=== PATIENT | male | born 1945 | race Caucasian/White ===

== ENCOUNTER 2023-07-29 14:26 | Inpatient (IN) | payer MEDICARE, MEDICAID, SELFPAY ==
[2023-07-29] VITALS (10 sets, daily range): BP systolic 108–152; BP diastolic 55–80; PULSE 70–82; RESP 14–24; TEMP 36.4–36.5; O2SAT 94–100; BMI 32.8; BMI 26.1
--- NOTE | ~2023-07-29 | CT_ITS ---
EXAMINATION: CT brain wo con DATE: 07/29/2023 17:19 INDICATION: TIA . TECHNIQUE: Computed tomography (CT) of the head was performed without intravenous contrast. The mA wa s adjusted according to patient size. Iterative reconstruction technique was employed. The dose-lengt h product was 605.33 mGy-cm. COMPARISON: None. FINDINGS: No acute intracranial hemorrhage or extra-axial fluid collection. No hydrocephalus, mass, or herniation. No acute ischemic infarct. Unremarkable dural venous sinus attenuation. No acute osseous abnormality. The aerated spaces are clear. Moderate atrophy and chronic white matter change. Atherosclerotic intracranial calcification. Bilater al old lacunar infarcts. IMPRESSION: No acute intracranial process. Reviewed, dictated and finalized at location K.
--- NOTE | ~2023-07-29 | CT_ITS ---
EXAMINATION: CT pelvis w con DATE: 07/29/2023 17:26 INDICATION: TECHNIQUE: Computed tomography (CT) of the pelvis was performed without intravenous contrast. Automat ed exposure control and iterative reconstruction technique were employed. The dose-length product was 777.97 mGy-cm. COMPARISON: None FINDINGS: Lumbar scoliosis and severe degenerative changes in the lower lumbar spine. Bilateral hip o steoarthritis. Patchy lytic areas throughout the axial skeleton. No evidence of osteomyelitis. No fra cture or dislocation. Multiple indeterminate density right renal lesions. Multiple right renal cysts and lesions that are too small to characterize. Atherosclerotic calcification. Prostatomegaly. Mild b ladder distention. No focal soft tissue defect detected. IMPRESSION: No CT evidence of significant sacral ulcer or osteomyelitis. Multiple indeterminate right renal masses, consider CT or MRI without and with contrast for further e valuation. Suggestion of lytic marrow lesions may represent aggressive osteoporosis, multiple myeloma, or metast ases. Correlate with history of primary malignancy. Reviewed, dictated and finalized at location K. IMPRESSION: No CT evidence of significant sacral ulcer or osteomyelitis. Multiple indeterminate right renal masses, consider CT or MRI without and with contrast for further evaluation. Suggestion of lytic marrow lesions may represent aggressive osteoporosis, multi ple myeloma, or metastases. Correlate with history of primary malignancy.
--- NOTE | 2023-07-29 15:11 | ED.GENADULT ---
HPI - General Adult General Chief complaint: Neuro Symptoms/Deficit Stated complaint: b/l LE pain Time Seen by Provider: 07/29/23 14:55 History of Present Illness HPI narrative: 78-year-old male presenting to the emergency department for evaluation of increased generalized weakness. Patient was just admitted and discharged to [facility]. [facility]. Family was concerned and wanted him reevaluated a second hospital. Family had last seen the patient approximate 1 month ago and they saw the patient today they noticed that he had significantly declined in his abilities. 1 month ago patient was able to ambulate with a walker but now he is bedbound. Patient is bedbound and does complain of lower extremity pain. Patient has a significant sacral ulcer that is chronic. Patient is alert and orientated at his baseline. Related Data Home Medications Medication Instructions Recorded Confirmed acetaminophen 650 mg 650 mg PO Q6H PRN Pain, Mild 07/29/23 07/29/23 tablet,extended release albuterol sulfate 90 mcg/actuation 2 puff inhalation Q6H PRN 07/29/23 07/29/23 aerosol inhaler Shortness Of Breath Or Wheezing aluminum-mag hydroxide-simethicone 5 ml PO QID PRN Abdominal 07/29/23 07/29/23 400 mg-400 mg-40 mg/5 mL oral susp Discomfort (Mylanta Maximum Strength) aspirin 81 mg tablet,delayed 81 mg PO DAILY 07/29/23 07/29/23 release budesonide 160 mcg-glycopyr 9 2 inh inhalation QAM AND QPM 07/29/23 07/29/23 mcg-formot 4.8 mcg/actuation HFA inhaler (Breztri Aerosphere) citalopram 10 mg tablet 10 mg PO DAILY 07/29/23 07/29/23 cyanocobalamin (vitamin B-12) 1,000 mcg 07/29/23 1,000 mcg/mL injection syringe diclofenac sodium 1 % topical gel 4 g topical QID 07/29/23 07/29/23 docusate sodium 100 mg tablet 100 mg PO BID 07/29/23 07/29/23 fluticasone propionate 50 2 spray intranasal DAILY 07/29/23 07/29/23 mcg/actuation nasal spray,suspension gabapentin 100 mg capsule 100 mg PO BID 07/29/23 07/29/23 hydrochlorothiazide 12.5 mg tablet 12.5 mg PO DAILY 07/29/23 07/29/23 lisinopril 40 mg tablet 40 mg PO DAILY 07/29/23 07/29/23 magnesium oxide 400 mg PO DAILY 07/29/23 07/29/23 melatonin 3 mg tablet 3 mg PO HS 07/29/23 07/29/23 metoprolol succinate 50 mg capsule 50 mg PO DAILY 07/29/23 07/29/23 sprinkle, ext. release 24 hr olopatadine 0.2 % eye drops 1 drp EACH EYE DAILY 07/29/23 07/29/23 omeprazole 20 mg capsule,delayed 20 mg PO BID 07/29/23 07/29/23 release polyethylene glycol 3350 17 17 g PO DAILY PRN Constipation 07/29/23 07/29/23 gram/dose oral powder (Miralax) pravastatin 40 mg tablet 40 mg PO DAILY 07/29/23 07/29/23 roflumilast 500 mcg tablet 500 mcg PO DAILY 07/29/23 07/29/23 trazodone 50 mg tablet 50 mg PO HS 07/29/23 07/29/23 Allergies Allergy/AdvReac Type Severity Reaction Status Date / Time No Known Allergies Allergy Unknown Unverified 05/07/15 09:47 Review of Systems Review of Systems: All systems reviewed & are unremarkable except as noted in HPI and below PMFSH Social History Social History Smoking status: Former smoker Alcohol intake: never Substance use: never Lack of Transportation: No Lack of Food: Never True Current Housing: I Have Housing Concerned About Future Housing: No Difficulty Paying Gas/Electric Bills: No Difficulty Paying for Meds: No Currently Unemployed: No Education: High School Diploma/GED Difficulty w/ Childcare or Family Care: No Spiritual care concerns: No Exam Narrative: APPEARANCE: Well appearing, no pain, no distress, well-nourished. HEAD: normocephalic, atraumatic. EYES: PERRLA/EOMI, conjunctivae clear. NOSE: Normal no drainage NECK: Supple. No adenopathy, no masses. RESPIRATORY: Airway patent, respirations nonlabored. Clear to auscultation bilaterally, no rales, rhonchi, wheezing. CARDIOVASCULAR: Regular rate and rhythm without murmurs rubs or gallops. ABDOMINAL: Soft, nontender, nondistended, normal
[2023-07-29 15:53] LABS: Basophils Absolute Auto 0.1 K/mm3 (0.0-0.1); Basophils Percent Auto 0.5 % (0.2-1.2); Eosinophils Absolute Auto 0.3 K/mm3 (0-0.3); Eosinophils Percent Auto 2.2 % (0-4.4); Hemoglobin 12.8 g/dL (14.0-18.0); Immature Granulocyte Absolute 0.08 K/mm3 (0.00-0.031); Immature Granulocyte Percent A 0.5 % (0-0.5); Lymphocytes Absolute Auto 1.73 K/mm3 (0.9-3.2); Lymphocytes Percent Auto 11.9 % (18.3-44.2); Mean Corpuscular Hemoglobin 29.2 pg (26-34); Mean Corpuscular Volume 91.1 fl (80-100); Mean Platelet Volume 9.8 fl (7.4-10.4); Monocytes Percent Auto 6.7 % (2.6-8.5); Neutrophils Absolute Auto 11.4 K/mm3 (1.3-6.7); Neutrophils Percent Auto 78.2 % (45.5-73.1); Platelet Count Result 379 k/mm3 (150-375); Red Blood Count 4.39 M/mm3 (4.6-6.20); White Blood Count 14.6 K/mm3 (4.5-10.0)
[2023-07-29 16:03] LABS: INR 1.1; Prothrombin Time 14.4 Seconds (11.1-14.7)
[2023-07-29 16:04] LABS: Partial Thromboplastin Time 26.8 SECONDS (22.3-36.8)
[2023-07-29 16:34] LABS: Influenza A QL RT-PCR Negative (Negative); Influenza B QL RT-PCR Negative (Negative); RSV RNA, RT-PCR Negative (Negative); SARS-CoV-2 RNA PCR Negative (Negative)
[2023-07-29] MEDS: fentaNYL CITRATE INJ (*CRX) 100 MCG/2 ML VIAL 50 MCG IV PUSH (16:50)
[2023-07-29 17:04] LABS: Lactic Acid Reflex 1.2 mmol/L (0.7-2.0)
[2023-07-29 17:15] LABS: Estimated CRCL calculation 43 ml/min; Estimated Glomerular Filt Rate 42
[2023-07-29 17:22] LABS: Alanine Aminotransferase 10 U/L (6-50); Albumin Level 3.4 g/dL (3.5-5.1); Alkaline Phosphatase 80 U/L (38-126); Anion Gap 11 mmol/L (8-16); Aspartate Amino Transferase 17 U/L (17-59); Bilirubin,Total 0.7 mg/dL (0.2-1.3); Blood Urea Nitrogen 38 mg/dL (9-20); Calcium 9.8 mg/dL (8.4-10.2); Carbon Dioxide 18 mmol/L (22-30); Chloride 110 mmol/L (98-107); Estimated CRCL calculation 45 ml/min; Estimated Glomerular Filt Rate 45; Glucose 90 mg/dL (65-110); Potassium 4.2 mmol/L (3.4-5.0); Sodium 139 mmol/L (137-145)
--- NOTE | 2023-07-29 19:03 | PC.NURSE ---
1830-pt refusing VS monitoring at this time, Pt unable to provide urine same and pt refused straight catheter. Pt educated on importance of monitoring and urine sample, MD aware of pt refusal.
--- NOTE | 2023-07-29 19:28 | PC.NURSE ---
Pt refused IV Zosyn, pt educated on importance and pt states I'm not doing that shit, I'm not worried about infection .
--- NOTE | 2023-07-29 20:12 | PM.IMHP ---
H&P: HPI History of Present Illness Date/Time: 07/29/23 20:12 Chief Complaint: Generalized weakness Narrative: This is an 78-year-old male with past medical history significant for hypertension, COPD/emphysema. Patient just recently discharged from a local hospital was brought to the emergency room for evaluation due to generalized weakness and worsening sacral decubitus ulcer. Patient was unable to provide much history. Workup was significant for lytic bone lesions found on CT. EXAMINATION: CT brain wo con DATE: 07/29/2023 17:19 INDICATION: TIA . TECHNIQUE: Computed tomography (CT) of the head was performed without intravenous contrast. The mA was adjusted according to patient size. Iterative reconstruction technique was employed. The dose-length product was 605.33 mGy-cm. COMPARISON: None. FINDINGS: No acute intracranial hemorrhage or extra-axial fluid collection. No hydrocephalus, mass, or herniation. No acute ischemic infarct. Unremarkable dural venous sinus attenuation. No acute osseous abnormality. The? aerated spaces are clear. Moderate atrophy and chronic white matter change. Atherosclerotic intracranial calcification. 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 IMPRESSION:? No acute intracranial process. EXAMINATION: CT pelvis w con DATE: 07/29/2023 17:26 INDICATION: TECHNIQUE: Computed tomography (CT) of the pelvis was performed without intravenous contrast. Automated exposure control and iterative reconstruction technique were employed. The dose-length product was 777.97 mGy-cm. COMPARISON: None FINDINGS: Lumbar scoliosis and severe degenerative changes in the lower lumbar spine. Bilateral hip osteoarthritis. Patchy lytic areas throughout the axial skeleton. No evidence of osteomyelitis. No fracture or dislocation. Multiple indeterminate density right renal lesions. Multiple right renal cysts and lesions that are too small to characterize. Atherosclerotic calcification. Prostatomegaly. Mild bladder distention. No focal soft tissue defect detected. IMPRESSION: No CT evidence of significant sacral ulcer or osteomyelitis. Multiple indeterminate right renal masses, consider CT or MRI without and with contrast for further evaluation. Suggestion of lytic marrow lesions may represent aggressive osteoporosis, multiple myeloma, or metastases. Correlate with history of primary malignancy. Review of Systems Review of Systems: ROS unobtainable: Yes unobtainable due to mental status (Obtundation/lethargy) PMFSH Social History Social History Smoking status: Former smoker Alcohol intake: never Substance use: never Lack of Transportation: No Lack of Food: Never True Current Housing: I Have Housing Concerned About Future Housing: No Difficulty Paying Gas/Electric Bills: No Difficulty Paying for Meds: No Currently Unemployed: No Education: High School Diploma/GED Difficulty w/ Childcare or Family Care: No Spiritual care concerns: No Meds Home Medications and Allergies Home Medications Medication Instructions Recorded Confirmed Type acetaminophen 650 mg 650 mg PO Q6H PRN Pain, Mild 07/29/23 07/29/23 History tablet,extended release albuterol sulfate 90 mcg/actuation 2 puff inhalation Q6H PRN 07/29/23 07/29/23 History aerosol inhaler Shortness Of Breath Or Wheezing aluminum-mag hydroxide-simethicone 5 ml PO QID PRN Abdominal 07/29/23 07/29/23 History 400 mg-400 mg-40 mg/5 mL oral susp Discomfort (Mylanta Maximum Strength) aspirin 81 mg tablet,delayed 81 mg PO DAILY 07/29/23 07/29/23 History release budesonide 160 mcg-glycopyr 9 2 inh inhalation QAM AND QPM 07/29/23 07/29/23 History mcg-formot 4.8 mcg/actuation HFA inhaler (Breztri Aerosphere) citalopram 10 mg tablet 10 mg PO DAILY 07/29/23 07/29/23 History cyanocobalamin (vitamin B-12) 1,000 mcg MONTHLY 07/29/23 07/29/23 History 1,000 mcg/mL injection syringe diclofenac sodium 1 % topi
--- NOTE | 2023-07-29 20:29 | ADMGEN ---
This patient, Valdez iSmpson, was admitted to Medical Room 343-01. Patient/family oriented to hospital policies and general routines including ID bracelet, bed and alarms, visiting hours, pain management, procedures, bathroom and other care routines, personal items, smoking policy, room service/diet, and visiting hours. Information on how to activate the Rapid Response Team has been discussed. Patient/Family are encouraged to report perceived risks to care and to ask questions if they do not understand what they are told or what they should do.
[2023-07-30 05:08] VITALS: BP 120/69; PULSE 67; RESP 16; TEMP 37; O2SAT 99
[2023-07-30] MEDS: PIPERACILLN/TAZ 3.375GM/NS50ML 3.375 GM/50 ML BAG IVPB ×3 (05:10→17:02)
[2023-07-30] MEDS: MAGNESIUM OXIDE 400 MG TABLET PO (10:18)
[2023-07-30] MEDS: ASPIRIN 81 MG ENTERIC TABLET PO (10:18)
[2023-07-30] MEDS: GABAPENTIN 100 MG CAPSULE PO ×2 (10:18→21:34)
[2023-07-30] MEDS: ROFLUMILAST 500 MCG TABLET PO (10:18)
[2023-07-30] MEDS: CITALOPRAM HYDROBROMIDE 10 MG TABLET PO (10:18)
[2023-07-30] MEDS: PRAVASTATIN SODIUM 20 MG TABLET 40 MG PO (10:18)
[2023-07-30] MEDS: FLUTICASONE PROPIONATE 0.05% NA SPR 16 GM BTL (*BKC) 2 SPRAY NASAL (10:20)
[2023-07-30] MEDS: BETAMETHASONE/CLOTRIMAZOLE CR 15 GM TUBE 1 APPLIC TOPICAL ×2 (10:20→21:34)
[2023-07-30] MEDS: DICLOFENAC SODIUM 1% 100 GM GEL (*BKC) 1 APPLIC TOPICAL ×4 (10:20→21:33)
[2023-07-30] MEDS: DOCUSATE SODIUM 100 MG CAPSULE PO ×2 (10:22→21:34)
[2023-07-30] MEDS: SOD HYPOCHLORITE 1/4 STRENGTH 473 ML 1 APPLIC TOPICAL ×2 (10:22→21:34)
[2023-07-30 10:23] VITALS: PULSE 74
[2023-07-30] MEDS: METOPROLOL SUCCINATE EXT REL 50 MG TABCR PO (10:23)
[2023-07-30 10:54] LABS: Appearance Urine Clear (Clear); Bilirubin Urine Negative (Negative); Blood Urine Negative (Negative); Color Urine Yellow (Yellow); Glucose Urine UA Negative (Negative); Ketones Urine 1+ mg/dL (Negative); Leukocyte Esterase Ur Negative LEU/UL (Negative); Nitrate Urine Negative (Negative); Protein Urine Negative (Negative); Urobilinogen Urine 0.2 mg/dL (<2.0)
--- NOTE | 2023-07-30 10:54 | PCOTNOTE ---
Attempted OT evaluation. Patient refused evaluation stating, go away. Will follow.
[2023-07-30 11:00] VITALS: BMI 26.1
[2023-07-30 11:01] LABS: Add Urine Microscopic? NO; Specific Grav Ur 1.042 (1.001-1.035)
[2023-07-30] MEDS: SODIUM CHLORIDE 0.9% IV 1,000 ML 75 ML IV CONT (12:04)
[2023-07-30] MEDS: PANTOPRAZOLE SOD SESQUIHYDRATE 20 MG TAB PO ×2 (12:04→21:35)
[2023-07-30] MEDS: FLUTICASONE/UMECLIDIN/VILANTER 100-62.5-25 MCG ELLIPTA 1 PUFF INHALATION (12:15)
[2023-07-30 12:16] VITALS: PULSE 68; RESP 20
[2023-07-30 12:18] VITALS: O2SAT 98
[2023-07-30 14:00] VITALS: BP 116/65; PULSE 74; RESP 20; TEMP 37; O2SAT 100
--- NOTE | 2023-07-30 14:05 | PM.CNGS ---
Assessment and Plan Assessment and plan (1) Sacral decubitus ulcer: Qualifiers: Pressure injury stage: unstageable Qualified Code(s): L89.150 - Pressure ulcer of sacral region, unstageable Code(s): L89.159 - Pressure ulcer of sacral region, unspecified stage Status: Acute Assessment and Plan: Patient has an infected sacral decubitus with necrotic tissue and foul odor. This needs to be debrided. This could be the cause of his mental status changes and his elevated white blood cell count. I called and talked to his healthcare POA, Aditya Simpson. I explained the condition of the sacral decubitus and that it does appear to be infected. I explained that it could be playing a significant role in his current illness but even if not, debridement is indicated. He is in favor of proceeding with excisional debridement. Plan to go ahead with that at 10:00 a.m. tomorrow morning. (2) Altered mental status, unspecified: Code(s): R41.82 - Altered mental status, unspecified Status: Acute Assessment and Plan: Patient nonverbal and obtunded. Baseline mental status not entirely clear. Pending old records. History of Present Illness Consult details Consult date: 07/30/23 Reason for consult: other (Sacral decubitus) Requesting physician: Lily Carrasco MD Narrative: Patient is an 78-year-old man who resides in a shelter. He was apparently admitted to [facility] and discharged back to the shelter yesterday 07/29/2023. Records from [facility] are not available at present time. Patient's family saw him and felt that he was significantly debilitated from their last visit about a month ago. He was complaining of lower extremity pain and was noted to have a large sacral decubitus. He went to the emergency room at [facility] on the same day that he was discharged, 07/29/2023. He was noted to have an elevated white blood cell count. CT scan of the pelvis showed several lytic lesions of the axial skeleton. Etiology of these is not apparent. Patient was also noted to have a foul-smelling necrotic sacral decubitus. We have been asked to see the patient regarding his sacral decubitus and potential management. Patient is nonverbal at the present time. Patient's white blood cell count in the emergency room was 14,600. His CT of the pelvis did not suggest sacral osteomyelitis. Review of Systems Review of Systems: ROS unobtainable: Yes unobtainable due to medical condition PMFSH Social History Social History Smoking status: Former smoker Alcohol intake: never Substance use: never Lack of Transportation: No Lack of Food: Never True Current Housing: I Have Housing Concerned About Future Housing: No Difficulty Paying Gas/Electric Bills: No Difficulty Paying for Meds: No Currently Unemployed: No Education: High School Diploma/GED Difficulty w/ Childcare or Family Care: No Spiritual care concerns: No Meds Home Medications and Allergies Home Medications Medication Instructions Recorded Confirmed Type acetaminophen 650 mg 650 mg PO Q6H PRN Pain, Mild 07/29/23 07/29/23 History tablet,extended release albuterol sulfate 90 mcg/actuation 2 puff inhalation Q6H PRN 07/29/23 07/29/23 History aerosol inhaler Shortness Of Breath Or Wheezing aluminum-mag hydroxide-simethicone 5 ml PO QID PRN Abdominal 07/29/23 07/29/23 History 400 mg-400 mg-40 mg/5 mL oral susp Discomfort (Mylanta Maximum Strength) aspirin 81 mg tablet,delayed 81 mg PO DAILY 07/29/23 07/29/23 History release budesonide 160 mcg-glycopyr 9 2 inh inhalation QAM AND QPM 07/29/23 07/29/23 History mcg-formot 4.8 mcg/actuation HFA inhaler (Breztri Aerosphere) citalopram 10 mg tablet 10 mg PO DAILY 07/29/23 07/29/23 History cyanocobalamin (vitamin B-12) 1,000 mcg MONTHLY 07/29/23 07/29/23 History 1,000 mcg/mL injec
--- NOTE | 2023-07-30 14:11 | PM.IMPN ---
Progress Note: A&P Assessment and Plan (1) Adult failure to thrive: Code(s): R62.7 - Adult failure to thrive Status: Acute Assessment and Plan: liberalize diet protein supplement dietitian consulted (2) Generalized weakness: Code(s): R53.1 - Weakness Status: Acute Assessment and Plan: Likely secondary to recent hospitalization PT OT consult (3) Sacral decubitus ulcer: Code(s): L89.159 - Pressure ulcer of sacral region, unspecified stage Status: Acute Assessment and Plan: Wound care consult recommended surgery consult Surgery consulted (4) Lytic bone lesions on xray: Code(s): M89.9 - Disorder of bone, unspecified Status: Acute Assessment and Plan: Unclear etiology Request medical records from outside hospital (5) PAULINE (acute kidney injury): Code(s): N17.9 - Acute kidney failure, unspecified Status: Acute Assessment and Plan: Likely pre renal azotemia Will hold hydrochlorothiazide Will hold lisinopril gentle rehydration and monitor (6) Renal mass, right: Code(s): N28.89 - Other specified disorders of kidney and ureter Status: Acute Assessment and Plan: urology consulted Subjective Date/time seen: 07/30/23 14:11 Review of Systems Review of Systems: ROS unobtainable: Yes unobtainable due to mental status (Obtundation/lethargy) Exam Narrative: Patient is laying in bed Const: General: comfortable, no acute distress, well developed, alert, awake, lethargic, patient obtunded and average body habitus Nutritional Appearance: average body habitus Orientation/consciousness: oriented to person, oriented to place, patient obtunded and lethargic HENMT: Head: normal to inspection, normocephalic and atraumatic Ears: hearing grossly normal bilaterally Face/Nose/Sinus: normal facial exam Face and sinus: normal facial exam Eyes: General: appearance normal, both eyes and all related structures Pupils: Equal, round and reactive pupils present EOM: EOMs intact bilaterally Neck: Neck: full ROM, no lymphadenopathy and no JVD Thyroid: thyroid normal Lymphatic: no lymphadenopathy noted Resp: Effort & Inspection: normal respiratory effort and able to speak in complete sentences Auscultation: clear to auscultation bilaterally Cardio: Jugular venous distension: no JVD Rate: regular rate Rhythm: regular rhythm Heart sounds: S1 normal heart sound present and S2 normal heart sound present : General: Yes deferred Skin: General skin exam: wounds noted (Sacral area) Rashes: no rashes Wounds: wounds noted (Sacral area) Neuro: General: oriented to person, oriented to place, CN's II-XI intact bilaterally and patient obtunded Cranial nerves: Yes CN's II-XII intact bilaterally and Yes Equal, round and reactive pupils present Cognition (Neuro): normal cognition Speech: normal speech Gait exam (Neuro): Normal gait present Motor exam (neuro): 5/5 motor strength present throughout Extrem: General: normal to inspection, full ROM, no joint enlargement and no pedal edema Objective Data Vital Signs Vital Signs: Vital Signs - 24 hr 07/29/23 14:29 07/29/23 14:45 07/29/23 14:46 Temperature 97.6 F Pulse Rate 82 75 70 Respiratory Rate 24 H 15 18 Blood Pressure 122/80 108/62 Pulse Oximetry 100 98 96 Oxygen Delivery Room Air 07/29/23 15:01 07/29/23 15:16 07/29/23 17:26 Temperature Pulse Rate 80 79 81 Respiratory Rate 20 18 14 Blood Pressure 108/55 L 116/80 Pulse Oximetry 98 98 98 Oxygen Delivery 07/29/23 17:30 07/29/23 18:01 07/29/23 19:16 Temperature Pulse Rate 81 74 Respiratory Rate 16 21 H Blood Pressure 136/64 134/68 Pulse Oximetry 96 94 Oxygen Delivery 07/29/23 20:39 07/30/23 05:08 07/30/23 10:23 Temperature 97.7 F 98.6 F Pulse Rate 79 67 74 Respiratory Rate 18 16 Blood Pressure 152/65 H 120/69 Pulse Oximetry 100 99 Oxygen Delivery 07/30
--- NOTE | 2023-07-30 14:53 | PC.NURSE ---
RN called Aditya FINCH of patient and obtained phone consents with 2nd RN
--- NOTE | 2023-07-30 15:15 | WPDURCON ---
Assessment and Plan Assessment and plan (1) Renal mass, right: Code(s): N28.89 - Other specified disorders of kidney and ureter Status: Acute Assessment and Plan: Bilateral renal masses which, by outside MRI scan abdomen/ pelvis w/wo contrast in February 2023 are consistent with simple and proteinaceous cyst. There are no findings suggestive solid enhancing renal malignancies. No further urological evaluation, or evaluation of these kidney findings, needed. Urology Consult Note HPI Date Seen: 07/30/23 Requesting Physician: Michelle Escamilla MD Primary Care Provider: Benny Randall, Consult Narrative Narrative: Valdez Simpson is a 78 year old male, previously unknown to our practice, who were asked to see to evaluate bilateral indeterminate renal masses. Patient is a care home resident and adriano experience cognitive decline over the past several months. His family asked for evaluation here because of this decline and dissatisfaction with answers a were getting at [facility] in [place]. I was able to log into [facility] [employer] EMR and can see the patient has had multiple admissions there over the past 6 months, generally for mental status changes. He has had least 2 brain MRI ( April 2023 in July 2023) - both showing small-vessel disease with generalized volume loss and no other significant findings. His most recent admission there was on July 09 when he presented with transient facial droop. Additionally, he has had lumbosacral spine CT and MRI scans that show multilevel degenerative disease with nonspecific heterogeneous bone density. There was no mention of lytic metastases. He does have bilateral indeterminate renal masses. MRI renal scan in February 2023 showed bilateral simple cysts with hemorrhagic proteinaceous cyst. There were no solid enhancing masses suspicious for renal cell carcinoma Review of Systems Review of Systems: ROS unobtainable: Yes unobtainable due to mental status [facility] Social History Social History Smoking status: Former smoker Alcohol intake: never Substance use: never Lack of Transportation: No Lack of Food: Never True Current Housing: I Have Housing Concerned About Future Housing: No Difficulty Paying Gas/Electric Bills: No Difficulty Paying for Meds: No Currently Unemployed: No Education: High School Diploma/GED Difficulty w/ Childcare or Family Care: No Spiritual care concerns: No Meds Home Medications and Allergies Home Medications Medication Instructions Recorded Confirmed Type acetaminophen 650 mg 650 mg PO Q6H PRN Pain, Mild 07/29/23 07/29/23 History tablet,extended release albuterol sulfate 90 mcg/actuation 2 puff inhalation Q6H PRN 07/29/23 07/29/23 History aerosol inhaler Shortness Of Breath Or Wheezing aluminum-mag hydroxide-simethicone 5 ml PO QID PRN Abdominal 07/29/23 07/29/23 History 400 mg-400 mg-40 mg/5 mL oral susp Discomfort (Mylanta Maximum Strength) aspirin 81 mg tablet,delayed 81 mg PO DAILY 07/29/23 07/29/23 History release budesonide 160 mcg-glycopyr 9 2 inh inhalation QAM AND QPM 07/29/23 07/29/23 History mcg-formot 4.8 mcg/actuation HFA inhaler (Breztri Aerosphere) citalopram 10 mg tablet 10 mg PO DAILY 07/29/23 07/29/23 History cyanocobalamin (vitamin B-12) 1,000 mcg MONTHLY 07/29/23 07/29/23 History 1,000 mcg/mL injection syringe diclofenac sodium 1 % topical gel 4 g topical QID 07/29/23 07/29/23 History docusate sodium 100 mg tablet 100 mg PO BID 07/29/23 07/29/23 History fluticasone propionate 50 2 spray intranasal DAILY 07/29/23 07/29/23 History mcg/actuation nasal spray,suspension gabapentin 100 mg capsule 100 mg PO BID 07/29/23 07/29/23 History hydrochlorothiazide 12.5 mg tablet 12.5 mg PO DAILY 07/29/23 07/29/23 History lisinopril 40 mg tablet 40 mg PO DAILY 07/29/23 07/29/23 History magnesium ox
[2023-07-30] MEDS: ACETAMINOPHEN 325 MG TABLET 650 MG PO (18:34)
[2023-07-30] MEDS: traZODone HCL 50 MG TABLET PO (21:34)
[2023-07-30] MEDS: MELATONIN 3 MG TABLET PO (21:34)
[2023-07-30 22:00] VITALS: BP 118/65; PULSE 64; RESP 20; TEMP 37.2; O2SAT 98
[2023-07-31] VITALS (16 sets, daily range): BP systolic 100–140; BP diastolic 41–98; PULSE 65–85; RESP 14–20; TEMP 36.3–37.1; O2SAT 93–100
[2023-07-31] MEDS: PIPERACILLN/TAZ 3.375GM/NS50ML 3.375 GM/50 ML BAG IVPB ×4 (00:29→17:05)
[2023-07-31] MEDS: SODIUM CHLORIDE 0.9% IV 1,000 ML 75 ML IV CONT ×2 (00:30→13:31)
[2023-07-31 06:18] LABS: Basophils Absolute Auto 0.1 K/mm3 (0.0-0.1); Basophils Percent Auto 0.5 % (0.2-1.2); Eosinophils Absolute Auto 0.5 K/mm3 (0-0.3); Eosinophils Percent Auto 3.7 % (0-4.4); Hematocrit 36.4 % (42.0-52.0); Hemoglobin 11.6 g/dL (14.0-18.0); Immature Granulocyte Absolute 0.06 K/mm3 (0.00-0.031); Immature Granulocyte Percent A 0.4 % (0-0.5); Lymphocytes Absolute Auto 1.62 K/mm3 (0.9-3.2); Lymphocytes Percent Auto 11.8 % (18.3-44.2); Mean Corpuscular HGB Conc 31.9 g/dl (32-36); Mean Corpuscular Hemoglobin 29.5 pg (26-34); Mean Corpuscular Volume 92.6 fl (80-100); Mean Platelet Volume 9.3 fl (7.4-10.4); Monocytes Absolute Auto 0.8 K/mm3 (0.1-0.6); Monocytes Percent Auto 6.1 % (2.6-8.5); Neutrophils Absolute Auto 10.6 K/mm3 (1.3-6.7); Neutrophils Percent Auto 77.5 % (45.5-73.1); Platelet Count Result 316 k/mm3 (150-375); Red Blood Count 3.93 M/mm3 (4.6-6.20); Red Cell Distribution Width 13.1 % (11.5-14.5); White Blood Count 13.7 K/mm3 (4.5-10.0)
[2023-07-31 06:27] LABS: Lactic Acid Reflex 0.8 mmol/L (0.7-2.0)
[2023-07-31 06:35] LABS: Alanine Aminotransferase 9 U/L (6-50); Albumin Level 2.9 g/dL (3.5-5.1); Alkaline Phosphatase 71 U/L (38-126); Anion Gap 6 mmol/L (8-16); Aspartate Amino Transferase 14 U/L (17-59); Bilirubin,Total 0.5 mg/dL (0.2-1.3); Blood Urea Nitrogen 34 mg/dL (9-20); Calcium 9.4 mg/dL (8.4-10.2); Carbon Dioxide 22 mmol/L (22-30); Chloride 110 mmol/L (98-107); Estimated CRCL calculation 42 ml/min; Estimated Glomerular Filt Rate 49; Glucose 90 mg/dL (65-110); Potassium 3.5 mmol/L (3.4-5.0); Sodium 138 mmol/L (137-145)
[2023-07-31] MEDS: FLUTICASONE/UMECLIDIN/VILANTER 100-62.5-25 MCG ELLIPTA 1 PUFF INHALATION (07:32)
--- NOTE | 2023-07-31 08:54 | PCOTNOTE ---
Attempted OT evaluation. Patient refusing any/all activity at this time. Will continue to attempt.
--- NOTE | 2023-07-31 08:58 | PCPTNOTE ---
Attempted PT evaluation. Patient refusing any/all activity at this time due to pain. Will continue to attempt.
[2023-07-31] MEDS: LACTATED RINGERS 1,000 ML 30 ML IV CONT (09:00)
[2023-07-31] MEDS: ACETAMINOPHEN 325 MG TABLET 650 MG PO (09:10)
--- NOTE | 2023-07-31 09:41 | WPDHPUPDATE1 ---
History and Physical Update Update Date/Time: 07/31/23 09:41 History and Physical has been reviewed, including an updated exam of the patient. There are NO changes in the patient's condition. Risks, benefits, and alternatives have been discussed and questions answered. Patient agrees to proceed with procedure.
--- NOTE | 2023-07-31 10:16 | WPDANESEPPF ---
Anes - Initial Pre Proc Eval Procedure: Operation Date: 07/31/23 10:00 Proposed Procedures p Debride Sacral Decubitus - Luisito Braxton MD Date/Time: 07/31/23 10:16 Surgeon: Michelle Escamilla MD Pre Op Diagnosis: Sacral Ulcer, Cellulitis, Failure to Thrive Patient Data Age: 78 Gender: M Height: 1.83 m Weight: 87.4 kg Last Vital Signs Temp 36.6 C 07/31/23 09:38 Pulse 71 07/31/23 09:38 Resp 16 07/31/23 09:38 BP 136/66 07/31/23 09:38 Pulse Ox 99 07/31/23 09:38 O2 Del Method Room Air 07/31/23 09:38 Allergies Allergy/AdvReac Type Severity Reaction Status Date / Time No Known Allergies Allergy Unknown Unverified 07/31/23 09:27 Home Medications Medication Instructions Recorded Confirmed Type acetaminophen 650 mg 650 mg PO Q6H PRN Pain, Mild 07/29/23 07/29/23 History tablet,extended release albuterol sulfate 90 mcg/actuation 2 puff inhalation Q6H PRN 07/29/23 07/29/23 History aerosol inhaler Shortness Of Breath Or Wheezing aluminum-mag hydroxide-simethicone 5 ml PO QID PRN Abdominal 07/29/23 07/29/23 History 400 mg-400 mg-40 mg/5 mL oral susp Discomfort (Mylanta Maximum Strength) aspirin 81 mg tablet,delayed 81 mg PO DAILY 07/29/23 07/29/23 History release budesonide 160 mcg-glycopyr 9 2 inh inhalation QAM AND QPM 07/29/23 07/29/23 History mcg-formot 4.8 mcg/actuation HFA inhaler (Breztri Aerosphere) citalopram 10 mg tablet 10 mg PO DAILY 07/29/23 07/29/23 History cyanocobalamin (vitamin B-12) 1,000 mcg MONTHLY 07/29/23 07/29/23 History 1,000 mcg/mL injection syringe diclofenac sodium 1 % topical gel 4 g topical QID 07/29/23 07/29/23 History docusate sodium 100 mg tablet 100 mg PO BID 07/29/23 07/29/23 History fluticasone propionate 50 2 spray intranasal DAILY 07/29/23 07/29/23 History mcg/actuation nasal spray,suspension gabapentin 100 mg capsule 100 mg PO BID 07/29/23 07/29/23 History hydrochlorothiazide 12.5 mg tablet 12.5 mg PO DAILY 07/29/23 07/29/23 History lisinopril 40 mg tablet 40 mg PO DAILY 07/29/23 07/29/23 History magnesium oxide 400 mg PO DAILY 07/29/23 07/29/23 History melatonin 3 mg tablet 3 mg PO HS 07/29/23 07/29/23 History metoprolol succinate 50 mg capsule 50 mg PO DAILY 07/29/23 07/29/23 History sprinkle, ext. release 24 hr olopatadine 0.2 % eye drops 1 drp EACH EYE DAILY 07/29/23 07/29/23 History omeprazole 20 mg capsule,delayed 20 mg PO BID 07/29/23 07/29/23 History release polyethylene glycol 3350 17 17 g PO DAILY PRN Constipation 07/29/23 07/29/23 History gram/dose oral powder (Miralax) pravastatin 40 mg tablet 40 mg PO DAILY 07/29/23 07/29/23 History roflumilast 500 mcg tablet 500 mcg PO DAILY 07/29/23 07/29/23 History trazodone 50 mg tablet 50 mg PO HS 07/29/23 07/29/23 History Laboratory Tests 07/30/23 07/30/23 07/31/23 10:37 14:54 05:31 WBC 13.7 H K/mm3 (4.5-10.0) RBC 3.93 L M/mm3 (4.6-6.20) Hgb 11.6 L g/dL (14.0-18.0) Hct 36.4 L % (42.0-52.0) MCV 92.6 fl (80-100) MCH 29.5 pg (26-34) MCHC 31.9 L g/dl (32-36) RDW 13.1 % (11.5-14.5) Plt Count 316 k/mm3 (150-375) MPV 9.3 fl (7.4-10.4) Immature Gran % (Auto) 0.4 % (0-0.5) Neut % (Auto) 77.5 H % (45.5-73.1) Lymph % (Auto) 11.8 L % (18.3-44.2) Fallon % (Auto) 6.1 % (2.6-8.5) Eos % (Auto) 3.7 % (0-4.4) Baso % (Auto) 0.5 % (0.2-1.2) Lymph # (Auto) 1.62 K/mm3 (0.9-3.2) Fallon # (Auto) 0.8 H K/mm3 (0.1-0.6) Eos # (Auto) 0.5 H K/mm3 (0-0.3) Baso # (Auto) 0.1 K/mm3 (0.0-0.1) Abs Immat Gran (auto) 0.06 H K/mm3 (0.00-0.031) Absolute Neuts (auto) 10.6 H K/mm3 (1.3-6.7) Absolute Nucleated RBC 0.0 K/mm3 (0.0-0.012) Nucleated RBC % 0.0 % (0.0-0.2) Sodium 138 mmol/L (137-145) Mathieu
--- NOTE | 2023-07-31 11:24 | PM.IMPN ---
Progress Note: A&P Assessment and Plan (1) Adult failure to thrive: Code(s): R62.7 - Adult failure to thrive Status: Acute Assessment and Plan: liberalize diet protein supplement dietitian consulted (2) Generalized weakness: Code(s): R53.1 - Weakness Status: Acute Assessment and Plan: Likely secondary to recent hospitalization PT OT consult (3) Sacral decubitus ulcer: Qualifiers: Pressure injury stage: unstageable Qualified Code(s): L89.150 - Pressure ulcer of sacral region, unstageable Code(s): L89.159 - Pressure ulcer of sacral region, unspecified stage Status: Acute Assessment and Plan: for wound debridement Surgery following (4) Lytic bone lesions on xray: Code(s): M89.9 - Disorder of bone, unspecified Status: Acute Assessment and Plan: Unclear etiology Request medical records from outside hospital (5) PAULINE (acute kidney injury): Code(s): N17.9 - Acute kidney failure, unspecified Status: Acute Assessment and Plan: improving Likely pre renal azotemia Will hold hydrochlorothiazide Will hold lisinopril gentle rehydration and monitor (6) Renal mass, right: Code(s): N28.89 - Other specified disorders of kidney and ureter Status: Acute Assessment and Plan: urology evaluated and reviewed prior records and noted that patient has simple bilateral cysts no intervention needed at this time Subjective Date/time seen: 07/31/23 11:24 Review of Systems Review of Systems: ROS unobtainable: Yes unobtainable due to mental status (Obtundation/lethargy) Exam Narrative: Patient is laying in bed Const: General: comfortable, no acute distress, well developed, alert, awake, lethargic, patient obtunded and average body habitus Nutritional Appearance: average body habitus Orientation/consciousness: oriented to person, oriented to place, patient obtunded and lethargic HENMT: Head: normal to inspection, normocephalic and atraumatic Ears: hearing grossly normal bilaterally Face/Nose/Sinus: normal facial exam Face and sinus: normal facial exam Eyes: General: appearance normal, both eyes and all related structures Pupils: Equal, round and reactive pupils present EOM: EOMs intact bilaterally Neck: Neck: full ROM, no lymphadenopathy and no JVD Thyroid: thyroid normal Lymphatic: no lymphadenopathy noted Resp: Effort & Inspection: normal respiratory effort and able to speak in complete sentences Auscultation: clear to auscultation bilaterally Cardio: Jugular venous distension: no JVD Rate: regular rate Rhythm: regular rhythm Heart sounds: S1 normal heart sound present and S2 normal heart sound present : General: Yes deferred Skin: General skin exam: wounds noted (Sacral area) Rashes: no rashes Wounds: wounds noted (Sacral area) Neuro: General: oriented to person, oriented to place, CN's II-XI intact bilaterally and patient obtunded Cranial nerves: Yes CN's II-XII intact bilaterally and Yes Equal, round and reactive pupils present Cognition (Neuro): normal cognition Speech: normal speech Gait exam (Neuro): Normal gait present Motor exam (neuro): 5/5 motor strength present throughout Extrem: General: normal to inspection, full ROM, no joint enlargement and no pedal edema Objective Data Vital Signs Vital Signs: Vital Signs - 24 hr 07/30/23 12:16 07/30/23 12:18 07/30/23 14:00 Temperature 98.6 F Pulse Rate 68 74 Respiratory Rate 20 20 Blood Pressure 116/65 Pulse Oximetry 98 100 Oxygen Delivery Room Air 07/30/23 20:00 07/30/23 22:00 07/31/23 07:33 Temperature 98.9 F Pulse Rate 64 76 Respiratory Rate 20 20 Blood Pressure 118/65 Pulse Oximetry 98 Oxygen Delivery Room Air 07/31/23 07:34 07/31/23 06:00 07/31/23 08:00 Temperature 97.4 F L Pulse Rate 69 Respiratory Rate 18 Blood Pressure 140/62 Pulse Oximetry 99 97 Oxygen Del
--- NOTE | 2023-07-31 11:25 | SUR.OPER ---
PICTURES OF BILATERAL HEELS TAKEN LEFT HEEL WITH BLUENESS AND RIGHT HEEL WITH REDNESS. NO PICTURE OF SACRUM PHYSICIAN AWARE.
--- NOTE | 2023-07-31 12:02 | W.PM.PROC2 ---
Procedure Note - Detailed Date of Procedure 07/31/23 Pre-op Diagnosis Infected, necrotic, sacral decubitus Post-op Diagnosis Same Procedure Performed Excisional debridement sacral decubitus, 6.5 by 3.5 x 2 cm or 46 cm3, debridement included skin subcutaneous muscle and bone. Surgeon Luisito Braxton MD Tax Ass[employer] Reshma Alonso [facility] Anesthesia General Indications Patient came to the emergency room on 07/29 with weakness and an obviously infected sacral decubitus. The decubitus was unstageable. It had blackened tissue with several soft areas and erythema around the area. It had a foul order as well. Patient is taken to surgery at this time for excisional debridement of this sacral decubitus. Findings Necrotic skin subcutaneous muscle and some sacral periosteum. There were pockets of purulent material in the area as well. No beverly abscess was noted. Debridement did require some degree of undermining. Description of Procedure Patient was taken to surgery and induced into general anesthesia. A glide scope was used to place the endotracheal tube. Patient was then turned to a prone position. The buttocks were taped apart. Prep and drape of the sacral area was then carried out. I again palpated the black and area of the decubitus. I started excising at the border of the necrotic tissue and the outer skin. I continued this excision circumferentially around the entire outer edge of the necrotic tissue. I then continued this dissection proceeding deeper into the wound. There were some pockets of liquefaction. There were several skip areas of necrotic tissue as well. Some of the necrotic tissue proceeded out beyond the skin borders consistent with undermining. The undermining was not so severe that I had to excise additional normal skin. Eventually I excised all the way down to and included some necrotic periosteum. Specimen was removed. I checked for additional areas of necrosis and excise these as well. I then used the cautery and achieved hemostasis. This was difficult as there was quite a bit of raw surface area that tended to ooze blood. No significant bleeding occurred. Once hemostasis was adequate, I measured the area after the debridement. It measured 6.5 cm in length, 3.5 cm in width, and 2 cm deep. I then packed the wound with 2 in iodoform Nu Gauze. Fluffs and Medipore tape were placed over the wound. Patient was returned to a supine position. He was awakened and extubated. He transferred to recovery in good condition. Estimated Blood Loss -5 Urine Output 200 Packing Yes (2 in iodoform Nu Gauze) Pathology None sent Complications No immediate complications Condition Stable Disposition PACU [facility] Billing Surgery - Charge Forward: Surgery Billing (Excisional debridement sacral decubitus 46 cm3. Excisional debridement included skin subcutaneous muscle and bone.)
[2023-07-31] MEDS: ROFLUMILAST 500 MCG TABLET PO (13:26)
[2023-07-31] MEDS: CITALOPRAM HYDROBROMIDE 10 MG TABLET PO (13:26)
[2023-07-31] MEDS: PRAVASTATIN SODIUM 20 MG TABLET 40 MG PO (13:26)
[2023-07-31] MEDS: DOCUSATE SODIUM 100 MG CAPSULE PO ×2 (13:26→22:56)
[2023-07-31] MEDS: GABAPENTIN 100 MG CAPSULE PO ×2 (13:26→22:56)
[2023-07-31] MEDS: ASPIRIN 81 MG ENTERIC TABLET PO (13:26)
[2023-07-31] MEDS: MAGNESIUM OXIDE 400 MG TABLET PO (13:26)
[2023-07-31] MEDS: PANTOPRAZOLE SOD SESQUIHYDRATE 20 MG TAB PO ×2 (13:27→22:56)
[2023-07-31] MEDS: METOPROLOL SUCCINATE EXT REL 50 MG TABCR PO (13:28)
[2023-07-31] MEDS: FLUTICASONE PROPIONATE 0.05% NA SPR 16 GM BTL (*BKC) 2 SPRAY NASAL (13:28)
[2023-07-31] MEDS: DICLOFENAC SODIUM 1% 100 GM GEL (*BKC) 1 APPLIC TOPICAL ×4 (13:29→22:58)
[2023-07-31] MEDS: BETAMETHASONE/CLOTRIMAZOLE CR 15 GM TUBE 1 APPLIC TOPICAL ×2 (13:29→22:57)
[2023-07-31 22:06] LABS: Glucose Point of Care 101 mg/dl (65-105)
[2023-07-31] MEDS: HYDROcodone/acetaminophen (*CRX) 5-325 MG TABLET 1 TAB PO (22:56)
[2023-07-31] MEDS: traZODone HCL 50 MG TABLET PO (22:56)
[2023-07-31] MEDS: MELATONIN 3 MG TABLET PO (22:57)
[2023-08-01] MEDS: PIPERACILLN/TAZ 3.375GM/NS50ML 3.375 GM/50 ML BAG IVPB ×4 (00:07→17:01)
[2023-08-01] MEDS: SODIUM CHLORIDE 0.9% IV 1,000 ML 75 ML IV CONT ×2 (03:15→16:54)
[2023-08-01 06:00] VITALS: BP 117/63; PULSE 106; RESP 20; TEMP 37.1; O2SAT 98
[2023-08-01 06:06] LABS: Basophils Percent Auto 0.3 % (0.2-1.2); Eosinophils Percent Auto 0.3 % (0-4.4); Hematocrit 35.9 % (42.0-52.0); Hemoglobin 11.3 g/dL (14.0-18.0); Immature Granulocyte Absolute 0.09 K/mm3 (0.00-0.031); Immature Granulocyte Percent A 0.8 % (0-0.5); Lymphocytes Absolute Auto 1.39 K/mm3 (0.9-3.2); Lymphocytes Percent Auto 11.6 % (18.3-44.2); Mean Corpuscular HGB Conc 31.5 g/dl (32-36); Mean Corpuscular Hemoglobin 29.4 pg (26-34); Mean Corpuscular Volume 93.2 fl (80-100); Mean Platelet Volume 9.4 fl (7.4-10.4); Monocytes Absolute Auto 0.6 K/mm3 (0.1-0.6); Monocytes Percent Auto 5.2 % (2.6-8.5); Neutrophils Absolute Auto 9.8 K/mm3 (1.3-6.7); Neutrophils Percent Auto 81.8 % (45.5-73.1); Platelet Count Result 303 k/mm3 (150-375); Red Blood Count 3.85 M/mm3 (4.6-6.20); Red Cell Distribution Width 13.1 % (11.5-14.5)
[2023-08-01 06:12] LABS: Alanine Aminotransferase 7 U/L (6-50); Albumin Level 2.8 g/dL (3.5-5.1); Alkaline Phosphatase 67 U/L (38-126); Anion Gap 6 mmol/L (8-16); Aspartate Amino Transferase 14 U/L (17-59); Bilirubin,Total 0.4 mg/dL (0.2-1.3); Blood Urea Nitrogen 29 mg/dL (9-20); Calcium 9.3 mg/dL (8.4-10.2); Carbon Dioxide 23 mmol/L (22-30); Chloride 111 mmol/L (98-107); Estimated CRCL calculation 39 ml/min; Estimated Glomerular Filt Rate 45; Glucose 99 mg/dL (65-110); Sodium 140 mmol/L (137-145)
[2023-08-01 06:18] LABS: Lactic Acid Reflex 0.8 mmol/L (0.7-2.0)
[2023-08-01] MEDS: PANTOPRAZOLE SOD SESQUIHYDRATE 20 MG TAB PO ×2 (08:13→21:07)
[2023-08-01] MEDS: GABAPENTIN 100 MG CAPSULE PO ×2 (08:13→21:06)
[2023-08-01] MEDS: ASPIRIN 81 MG ENTERIC TABLET PO (08:13)
[2023-08-01] MEDS: PRAVASTATIN SODIUM 20 MG TABLET 40 MG PO (08:13)
[2023-08-01] MEDS: MAGNESIUM OXIDE 400 MG TABLET PO (08:13)
[2023-08-01] MEDS: CITALOPRAM HYDROBROMIDE 10 MG TABLET PO (08:13)
[2023-08-01] MEDS: ROFLUMILAST 500 MCG TABLET PO (08:14)
[2023-08-01] MEDS: ENOXAPARIN 40 MG/0.4 ML SYRINGE SUB-Q (08:14)
[2023-08-01] MEDS: FLUTICASONE PROPIONATE 0.05% NA SPR 16 GM BTL (*BKC) 2 SPRAY NASAL (08:14)
[2023-08-01] MEDS: DOCUSATE SODIUM 100 MG CAPSULE PO ×2 (08:14→21:07)
[2023-08-01] MEDS: BETAMETHASONE/CLOTRIMAZOLE CR 15 GM TUBE 1 APPLIC TOPICAL ×2 (08:14→21:07)
[2023-08-01] MEDS: DICLOFENAC SODIUM 1% 100 GM GEL (*BKC) 1 APPLIC TOPICAL ×4 (08:14→21:07)
[2023-08-01 08:16] VITALS: PULSE 68
[2023-08-01] MEDS: METOPROLOL SUCCINATE EXT REL 50 MG TABCR PO (08:16)
[2023-08-01 08:19] VITALS: PULSE 67; RESP 18; O2SAT 98
[2023-08-01] MEDS: FLUTICASONE/UMECLIDIN/VILANTER 100-62.5-25 MCG ELLIPTA 1 PUFF INHALATION (08:19)
--- NOTE | 2023-08-01 09:23 | PCPTNOTE ---
Patient has bedrest orders from the surgeon, if still on tomorrow will ask to cancel physical therapy order.
--- NOTE | 2023-08-01 10:37 | PCOTNOTE ---
Pt. has bedrest orders placed in the last 24 hours, which will need to be changed by hospitalist/surgeon provider prior to participation in therapy services.
[2023-08-01] MEDS: HYDROcodone/acetaminophen (*CRX) 5-325 MG TABLET 1 TAB PO ×2 (12:48→21:06)
--- NOTE | 2023-08-01 12:53 | PM.IMPN ---
Progress Note: A&P Assessment and Plan (1) Adult failure to thrive: Code(s): R62.7 - Adult failure to thrive Status: Acute Assessment and Plan: continues to have poor appetite discussed with nephewAditya, who agrees with tube feeds to supplement oral intake Dietitian consulted Aidee Nephew who is DPOA will decide on goals of care when he arrives (2) Generalized weakness: Code(s): R53.1 - Weakness Status: Acute Assessment and Plan: Likely secondary to recent hospitalization PT OT consult (3) Sacral decubitus ulcer: Qualifiers: Pressure injury stage: unstageable Qualified Code(s): L89.150 - Pressure ulcer of sacral region, unstageable Code(s): L89.159 - Pressure ulcer of sacral region, unspecified stage Status: Acute Assessment and Plan: for wound debridement continue Zosyn Surgery following (4) Lytic bone lesions on xray: Code(s): M89.9 - Disorder of bone, unspecified Status: Acute Assessment and Plan: Unclear etiology Request medical records from outside hospital (5) PAULINE (acute kidney injury): Code(s): N17.9 - Acute kidney failure, unspecified Status: Acute Assessment and Plan: improving Likely pre renal azotemia Will hold hydrochlorothiazide Will hold lisinopril gentle rehydration and monitor (6) Renal mass, right: Code(s): N28.89 - Other specified disorders of kidney and ureter Status: Acute Assessment and Plan: urology evaluated and reviewed prior records and noted that patient has simple bilateral cysts no intervention needed at this time Subjective Date/time seen: 08/01/23 12:53 Interval history: s/p debridement Appetite still poor Dietitian following, start tube feeds and dietitian to titrate Discussed with the some and agreed with tube feeds and stated he will be here on Thursday and will decide goals of care. Review of Systems Review of Systems: ROS unobtainable: Yes unobtainable due to mental status (Obtundation/lethargy) Exam Narrative: Patient is laying in bed Const: General: comfortable, no acute distress, well developed, alert, awake, lethargic, patient obtunded and average body habitus Nutritional Appearance: average body habitus Orientation/consciousness: oriented to person, oriented to place, patient obtunded and lethargic HENMT: Head: normal to inspection, normocephalic and atraumatic Ears: hearing grossly normal bilaterally Face/Nose/Sinus: normal facial exam Face and sinus: normal facial exam Eyes: General: appearance normal, both eyes and all related structures Pupils: Equal, round and reactive pupils present EOM: EOMs intact bilaterally Neck: Neck: full ROM, no lymphadenopathy and no JVD Thyroid: thyroid normal Lymphatic: no lymphadenopathy noted Resp: Effort & Inspection: normal respiratory effort and able to speak in complete sentences Auscultation: clear to auscultation bilaterally Cardio: Jugular venous distension: no JVD Rate: regular rate Rhythm: regular rhythm Heart sounds: S1 normal heart sound present and S2 normal heart sound present : General: Yes deferred Skin: General skin exam: wounds noted (Sacral area) Rashes: no rashes Wounds: wounds noted (Sacral area) Neuro: General: oriented to person, oriented to place, CN's II-XI intact bilaterally and patient obtunded Cranial nerves: Yes CN's II-XII intact bilaterally and Yes Equal, round and reactive pupils present Cognition (Neuro): normal cognition Speech: normal speech Gait exam (Neuro): Normal gait present Motor exam (neuro): 5/5 motor strength present throughout Extrem: General: normal to inspection, full ROM, no joint enlargement and no pedal edema Objective Data Vital Signs Vital Signs: Vital Signs - 24 hr 07/31/23 13:28 07/31/23 13:05 07/31/23 14:22 Temperature 97.7 F 97.7 F Pulse Rate 68 69 69 Respiratory Rate 15 15 Blood Press
[2023-08-01 14:00] VITALS: BP 91/51; PULSE 66; RESP 16; TEMP 36.9; O2SAT 98
--- NOTE | 2023-08-01 15:17 | PM.PNGS ---
Progress Note: A&P Assessment and Plan (1) Sacral decubitus ulcer: Qualifiers: Pressure injury stage: unstageable Qualified Code(s): L89.150 - Pressure ulcer of sacral region, unstageable Code(s): L89.159 - Pressure ulcer of sacral region, unspecified stage Status: Chronic Assessment and Plan: Stage IV sacral decubitus. Will start dressing changes tomorrow. Subjective Subjective Date/Time Seen: 08/01/23 15:17 Post Op day: 1 Patient reports: no new complaints Interval history: Patient much more verbal after surgery. Exam Const: General: comfortable and awake Back/Spine/Pelvis: Sacrum: other (Dressing dry and intact) Objective Data Vital Signs Vital Signs: Vital Signs - 24 hr 07/31/23 18:22 07/31/23 22:00 07/31/23 20:00 Temperature 36.6 C 37.1 C Pulse Rate 72 85 Respiratory Rate 15 20 Blood Pressure 128/98 H 102/41 L Pulse Oximetry 100 98 Oxygen Delivery Room Air Fraction of Inspired Oxygen 08/01/23 08:16 08/01/23 06:00 08/01/23 08:00 Temperature 37.1 C Pulse Rate 68 106 H Respiratory Rate 20 Blood Pressure 117/63 Pulse Oximetry 98 Oxygen Delivery Room Air Fraction of Inspired Oxygen 08/01/23 08:19 08/01/23 08:19 Temperature Pulse Rate 67 Respiratory Rate 18 Blood Pressure Pulse Oximetry 98 Oxygen Delivery Room Air Fraction of Inspired Oxygen 21 Intake/Output Intake/Output: Intake & Output 07/29/23 07/30/23 07/31/23 08/01/23 23:59 23:59 23:59 23:59 Intake Total 1612 2900 2060 Output Total 800 400 Balance 812 2500 2060 Meds/Results Medications: Active Medications Generic Name Dose Route Start Last Admin Trade Name Freq PRN Reason Stop Dose Admin Acetaminophen 650 mg 07/30/23 01:47 07/31/23 09:10 Acetaminophen 325 Mg Tablet PO 650 mg Q6H PRN Administration Pain, Mild 1-3 Hydrocodone Bitart/Acetaminophen 1 tab 07/31/23 12:37 08/01/23 12:48 Hydrocodone/Acetaminophen (*Crx) 5-325 Mg Tablet PO 1 tab Q4H PRN Administration Pain Rated 4-6 Al Hydrox/Mg Hydrox/Simethicone 5 ml 07/30/23 01:47 Mag Hydrox/Al Hydrox/Simeth 30 Ml Udc PO QID PRN Abdominal Discomfort Albuterol 2 puff 07/30/23 01:47 Albuterol Sulfate (*Sp) Aerosol 1 Puff INHALATION Q6HRT PRN Shortness Of Breath Or Wheezing Aspirin 81 mg 07/30/23 09:00 08/01/23 08:13 Aspirin 81 Mg Enteric Tablet PO 81 mg DAILY PHOEBE Administration Citalopram Hydrobromide 10 mg 07/30/23 09:00 08/01/23 08:13 Citalopram Hydrobromide 10 Mg Tablet PO 10 mg DAILY PHOEBE Administration Clotrimazole 1 applic 07/30/23 09:00 08/01/23 08:14 Betamethasone/Clotrimazole Cr 15 Gm Tube TOPICAL 1 applic Q12HR PHOEBE Administration Diclofenac Sodium 1 applic 07/30/23 09:00 08/01/23 12:48 Diclofenac Sodium 1% 100 Gm Gel (*Bkc) TOPICAL 1 applic QID PHOEBE Administration Docusate Sodium 100 mg 07/30/23 09:00 08/01/23 08:14 Docusate Sodium 100 Mg Capsule PO 100 mg Q12HR PHOEBE Administration Dronabinol 2.5 mg 08/01/23 17:00 Dronabinol (*Crx) 2.5 Mg Capsule PO BID PHOEBE Enoxaparin Sodium 40 mg 08/01/23 09:00 08/01/23 08:14 Enoxaparin 40 Mg/0.4 Ml Syringe SUB-Q 40 mg DAILY PHOEBE Administration Fluticasone Propionate 2 spray 07/30/23 09:00 08/01/23 08:14 Fluticasone Propionate 0.05% Na Spr 16 Gm Btl (*Bkc) NASAL 2 spray DAILY PHOEBE Administration Fluticasone/Umeclidinium/Vilanterol 1 puff 07/30/23 08:00 08/01/23 08:19 Fluticasone/Umeclidin/Vilanter 100-62.5-25 Mcg Ellipta INHALATION 1 puff DAILYRT PHOEBE Administration Gabapentin 100 mg 07/30/23 09:00 08/01/23 08:13 Gabapentin 100 Mg Capsule PO 100 mg Q12HR PHOEBE Administration Piperacillin/Tazobactam/Dextrose 3.375 gm in 50 mls @ 100 mls/hr 07/30/23 00:00 08/01/23 12:48 Zosyn 3.375 Gm/Ns 50 Ml IVPB 100 mls/hr Q6H PHOEBE Administration Sodium Chloride 1,000 mls @ 75 mls/hr
--- NOTE | 2023-08-01 15:41 | PC.NURSE ---
Spoke with MD. No dietitian available until Thursday. Plans for NG tube with tube feeding planned until patient is tolerating more food. Since no dietitian to give tube feed recommendations until Thursday we will hold off on NG until then.
[2023-08-01] MEDS: droNABinol (*CRX) 2.5 MG CAPSULE PO (16:55)
[2023-08-01 20:51] VITALS: BP 108/54; PULSE 60; RESP 20; TEMP 36.6; O2SAT 100
[2023-08-01] MEDS: traZODone HCL 50 MG TABLET PO (21:06)
[2023-08-01] MEDS: MELATONIN 3 MG TABLET PO (21:07)
[2023-08-02] VITALS (7 sets, daily range): BP systolic 108–125; BP diastolic 61–69; PULSE 64–86; RESP 18–20; TEMP 36.9–37.1; O2SAT 97–99
[2023-08-02] MEDS: PIPERACILLN/TAZ 3.375GM/NS50ML 3.375 GM/50 ML BAG IVPB ×5 (00:30→23:20)
[2023-08-02] MEDS: SODIUM CHLORIDE 0.9% IV 1,000 ML 75 ML IV CONT ×2 (05:58→23:22)
[2023-08-02 06:12] LABS: Hemoglobin 11.5 g/dL (14.0-18.0); Mean Corpuscular HGB Conc 30.3 g/dl (32-36); Mean Corpuscular Hemoglobin 29.2 pg (26-34); Mean Corpuscular Volume 96.4 fl (80-100); Mean Platelet Volume 9.5 fl (7.4-10.4); Platelet Count Result 336 k/mm3 (150-375); Red Blood Count 3.94 M/mm3 (4.6-6.20); Red Cell Distribution Width 13.2 % (11.5-14.5); White Blood Count 10.7 K/mm3 (4.5-10.0)
[2023-08-02 06:30] LABS: Lactic Acid Reflex 1.2 mmol/L (0.7-2.0)
[2023-08-02] MEDS: FLUTICASONE/UMECLIDIN/VILANTER 100-62.5-25 MCG ELLIPTA 1 PUFF INHALATION (06:52)
[2023-08-02 07:23] LABS: Alanine Aminotransferase 8 U/L (6-50); Albumin Level 2.7 g/dL (3.5-5.1); Alkaline Phosphatase 64 U/L (38-126); Anion Gap 7 mmol/L (8-16); Aspartate Amino Transferase 19 U/L (17-59); Bilirubin,Total 0.4 mg/dL (0.2-1.3); Blood Urea Nitrogen 27 mg/dL (9-20); Calcium 9.3 mg/dL (8.4-10.2); Carbon Dioxide 22 mmol/L (22-30); Chloride 112 mmol/L (98-107); Estimated CRCL calculation 45 ml/min; Estimated Glomerular Filt Rate 53; Glucose 89 mg/dL (65-110); Magnesium 1.8 mg/dL (1.6-2.3); Potassium 3.6 mmol/L (3.4-5.0); Sodium 141 mmol/L (137-145)
[2023-08-02] MEDS: droNABinol (*CRX) 2.5 MG CAPSULE PO ×2 (09:54→17:06)
[2023-08-02] MEDS: GABAPENTIN 100 MG CAPSULE PO ×2 (09:54→20:44)
[2023-08-02] MEDS: CITALOPRAM HYDROBROMIDE 10 MG TABLET PO (09:54)
[2023-08-02] MEDS: ROFLUMILAST 500 MCG TABLET PO (09:54)
[2023-08-02] MEDS: ASPIRIN 81 MG ENTERIC TABLET PO (09:54)
[2023-08-02] MEDS: PANTOPRAZOLE SOD SESQUIHYDRATE 20 MG TAB PO ×2 (09:54→20:44)
[2023-08-02] MEDS: METOPROLOL SUCCINATE EXT REL 50 MG TABCR PO (09:55)
[2023-08-02] MEDS: DOCUSATE SODIUM 100 MG CAPSULE PO (09:55)
[2023-08-02] MEDS: PRAVASTATIN SODIUM 20 MG TABLET 40 MG PO (09:55)
[2023-08-02] MEDS: MAGNESIUM OXIDE 400 MG TABLET PO (09:56)
[2023-08-02] MEDS: FLUTICASONE PROPIONATE 0.05% NA SPR 16 GM BTL (*BKC) 2 SPRAY NASAL (09:56)
[2023-08-02] MEDS: DICLOFENAC SODIUM 1% 100 GM GEL (*BKC) 1 APPLIC TOPICAL (09:56)
[2023-08-02] MEDS: ENOXAPARIN 40 MG/0.4 ML SYRINGE SUB-Q (09:56)
[2023-08-02] MEDS: BETAMETHASONE/CLOTRIMAZOLE CR 15 GM TUBE 1 APPLIC TOPICAL ×2 (09:57→20:45)
--- NOTE | 2023-08-02 12:36 | PCOTNOTE ---
Pt. continues to have bedrest orders. Spoke with hospitalist, Dr. Carrasco, who agreed to changing of orders for pt. to participate in therapy services.
--- NOTE | 2023-08-02 12:37 | PM.PNGS ---
Progress Note: A&P Assessment and Plan (1) Sacral decubitus ulcer: Qualifiers: Pressure injury stage: unstageable Qualified Code(s): L89.150 - Pressure ulcer of sacral region, unstageable Code(s): L89.159 - Pressure ulcer of sacral region, unspecified stage Status: Chronic Assessment and Plan: Infected and necrotic tissue successfully debrided 07/31/2023. Will restart Santyl dressing changes. Ask wound care nurses to see tomorrow. Subjective Subjective Date/Time Seen: 08/02/23 12:37 Post Op day: 2 Patient reports: no new complaints Review of Systems Review of Systems: ROS unobtainable: Yes unobtainable due to mental status Exam Const: General: cooperative, comfortable, no acute distress and awake Back/Spine/Pelvis: Sacrum: other (Sacral decubitus clean with minimal serous drainage) Other: No new necrotic material in sacral decubitus wound Objective Data Vital Signs Vital Signs: Vital Signs - 24 hr 08/01/23 14:00 08/01/23 20:51 08/01/23 20:00 Temperature 36.9 C 36.6 C Pulse Rate 66 60 Respiratory Rate 16 20 Blood Pressure 91/51 L 108/54 L Pulse Oximetry 98 100 Oxygen Delivery Room Air 08/02/23 05:40 08/02/23 06:50 08/02/23 06:50 Temperature 36.9 C Pulse Rate 86 64 64 Respiratory Rate 20 18 18 Blood Pressure 108/69 Pulse Oximetry 99 97 Oxygen Delivery Room Air 08/02/23 09:55 Temperature Pulse Rate 68 Respiratory Rate Blood Pressure Pulse Oximetry Oxygen Delivery Intake/Output Intake/Output: Intake & Output 07/30/23 07/31/23 08/01/23 08/02/23 23:59 23:59 23:59 23:59 Intake Total 1612 2900 3620 1320 Output Total 800 400 Balance 812 2500 3620 1320 Meds/Results Medications: Active Medications Generic Name Dose Route Start Last Admin Trade Name Freq PRN Reason Stop Dose Admin Acetaminophen 650 mg 07/30/23 01:47 07/31/23 09:10 Acetaminophen 325 Mg Tablet PO 650 mg Q6H PRN Administration Pain, Mild 1-3 Hydrocodone Bitart/Acetaminophen 1 tab 07/31/23 12:37 08/01/23 21:06 Hydrocodone/Acetaminophen (*Crx) 5-325 Mg Tablet PO 1 tab Q4H PRN Administration Pain Rated 4-6 Al Hydrox/Mg Hydrox/Simethicone 5 ml 07/30/23 01:47 Mag Hydrox/Al Hydrox/Simeth 30 Ml Udc PO QID PRN Abdominal Discomfort Albuterol 2 puff 07/30/23 01:47 Albuterol Sulfate (*Sp) Aerosol 1 Puff INHALATION Q6HRT PRN Shortness Of Breath Or Wheezing Aspirin 81 mg 07/30/23 09:00 08/02/23 09:54 Aspirin 81 Mg Enteric Tablet PO 81 mg DAILY PHOEBE Administration Citalopram Hydrobromide 10 mg 07/30/23 09:00 08/02/23 09:54 Citalopram Hydrobromide 10 Mg Tablet PO 10 mg DAILY PHOEBE Administration Clotrimazole 1 applic 07/30/23 09:00 08/02/23 09:57 Betamethasone/Clotrimazole Cr 15 Gm Tube TOPICAL 1 applic Q12HR PHOEBE Administration Diclofenac Sodium 1 applic 07/30/23 09:00 08/02/23 12:13 Diclofenac Sodium 1% 100 Gm Gel (*Bkc) TOPICAL Not Given QID PHOEBE Docusate Sodium 100 mg 07/30/23 09:00 08/02/23 09:55 Docusate Sodium 100 Mg Capsule PO 100 mg Q12HR PHOEBE Administration Dronabinol 2.5 mg 08/01/23 17:00 08/02/23 09:54 Dronabinol (*Crx) 2.5 Mg Capsule PO 2.5 mg BID PHOEBE Administration Enoxaparin Sodium 40 mg 08/01/23 09:00 08/02/23 09:56 Enoxaparin 40 Mg/0.4 Ml Syringe SUB-Q 40 mg DAILY PHOEBE Administration Fluticasone Propionate 2 spray 07/30/23 09:00 08/02/23 09:56 Fluticasone Propionate 0.05% Na Spr 16 Gm Btl (*Bkc) NASAL 2 spray DAILY PHOEBE Administration Fluticasone/Umeclidinium/Vilanterol 1 puff 07/30/23 08:00 08/02/23 06:52 Fluticasone/Umeclidin/Vilanter 100-62.5-25 Mcg Ellipta INHALATION 1 puff DAILYRT PHOEBE Administration Gabapentin 100 mg 07/30/23 09:00 08/02/23 09:54 Gabapentin 100 Mg Capsule PO 100 mg Q12HR PHOEBE Administration Piperacillin/Tazobactam/Dextrose 3.375 gm in 50 mls @ 100 mls/hr
--- NOTE | 2023-08-02 14:11 | PM.IMPN ---
Progress Note: A&P Assessment and Plan (1) Adult failure to thrive: Code(s): R62.7 - Adult failure to thrive Status: Acute Assessment and Plan: continues to have poor appetite discussed with nephewAditya, who agrees with tube feeds to supplement oral intake Dietitian not available this weekend and thus tube feeds unable to be started until thursday Dronabinol NephewAditya, who is DPOA will be here Thursday to discuss goals of care (2) Generalized weakness: Code(s): R53.1 - Weakness Status: Acute Assessment and Plan: Likely secondary to recent hospitalization PT OT consult (3) Sacral decubitus ulcer: Qualifiers: Pressure injury stage: unstageable Qualified Code(s): L89.150 - Pressure ulcer of sacral region, unstageable Code(s): L89.159 - Pressure ulcer of sacral region, unspecified stage Status: Chronic Assessment and Plan: for wound debridement continue Zosyn day12/09, leukocytosis improving Surgery following, wound care per surgery (4) Lytic bone lesions on xray: Code(s): M89.9 - Disorder of bone, unspecified Status: Acute Assessment and Plan: Unclear etiology Request medical records from outside hospital (5) PAULINE (acute kidney injury): Code(s): N17.9 - Acute kidney failure, unspecified Status: Acute Assessment and Plan: resolved Likely pre renal azotemia Will hold hydrochlorothiazide Will hold lisinopril gentle rehydration and monitor (6) Renal mass, right: Code(s): N28.89 - Other specified disorders of kidney and ureter Status: Acute Assessment and Plan: urology evaluated and reviewed prior records and noted that patient has simple bilateral cysts no intervention needed at this time Plan DVT prophylaxis on Sq Lovenox Subjective Date/time seen: 08/02/23 14:11 Interval history: s/p debridement Appetite still poor Discussed with the some and agreed with tube feeds however unable to start tube feeds as dietitian was not available on weekend wound care per gen surgery Nephew will be here on Thursday to discuss goals of care Review of Systems Review of Systems: ROS unobtainable: Yes unobtainable due to mental status (Obtundation/lethargy) Exam Narrative: Patient is laying in bed Const: General: comfortable, no acute distress, well developed, alert, awake, lethargic, patient obtunded and average body habitus Nutritional Appearance: average body habitus Orientation/consciousness: oriented to person, oriented to place, patient obtunded and lethargic HENMT: Head: normal to inspection, normocephalic and atraumatic Ears: hearing grossly normal bilaterally Face/Nose/Sinus: normal facial exam Face and sinus: normal facial exam Eyes: General: appearance normal, both eyes and all related structures Pupils: Equal, round and reactive pupils present EOM: EOMs intact bilaterally Neck: Neck: full ROM, no lymphadenopathy and no JVD Thyroid: thyroid normal Lymphatic: no lymphadenopathy noted Resp: Effort & Inspection: normal respiratory effort and able to speak in complete sentences Auscultation: clear to auscultation bilaterally Cardio: Jugular venous distension: no JVD Rate: regular rate Rhythm: regular rhythm Heart sounds: S1 normal heart sound present and S2 normal heart sound present : General: Yes deferred Skin: General skin exam: wounds noted (Sacral area) Rashes: no rashes Wounds: wounds noted (Sacral area) Neuro: General: oriented to person, oriented to place, CN's II-XI intact bilaterally and patient obtunded Cranial nerves: Yes CN's II-XII intact bilaterally and Yes Equal, round and reactive pupils present Cognition (Neuro): normal cognition Speech: normal speech Gait exam (Neuro): Normal gait present Motor exam (neuro): 5/5 motor strength present throughout Extrem: General: normal to inspection, full ROM, no joint enlargement and no pedal e
[2023-08-02 15:29] LABS: Lambda Light Chain 43.9 mg/L (5.7-26.3)
--- NOTE | 2023-08-02 15:35 | PCPTNOTE ---
Pt. continues to have bedrest orders. Occupational Therapist spoke with hospitalist, Dr. Carrasco, who agreed to changing of orders for pt. to participate in therapy services, orders not changed as of 1534
[2023-08-02] MEDS: traZODone HCL 50 MG TABLET PO (20:45)
[2023-08-02] MEDS: MELATONIN 3 MG TABLET PO (20:45)
[2023-08-02] MEDS: HYDROcodone/acetaminophen (*CRX) 5-325 MG TABLET 1 TAB PO (21:00)
[2023-08-03] MEDS: HYDROcodone/acetaminophen (*CRX) 5-325 MG TABLET 1 TAB PO ×2 (05:21→22:22)
[2023-08-03] MEDS: PIPERACILLN/TAZ 3.375GM/NS50ML 3.375 GM/50 ML BAG IVPB ×3 (05:21→17:32)
[2023-08-03 05:23] LABS: Basophils Absolute Auto 0.1 K/mm3 (0.0-0.1); Basophils Percent Auto 0.8 % (0.2-1.2); Eosinophils Absolute Auto 0.4 K/mm3 (0-0.3); Eosinophils Percent Auto 3.2 % (0-4.4); Hematocrit 42.9 % (42.0-52.0); Hemoglobin 12.3 g/dL (14.0-18.0); Immature Granulocyte Absolute 0.09 K/mm3 (0.00-0.031); Immature Granulocyte Percent A 0.8 % (0-0.5); Lymphocytes Absolute Auto 1.84 K/mm3 (0.9-3.2); Lymphocytes Percent Auto 15.7 % (18.3-44.2); Mean Corpuscular HGB Conc 28.7 g/dl (32-36); Mean Corpuscular Hemoglobin 29.6 pg (26-34); Mean Corpuscular Volume 103.4 fl (80-100); Mean Platelet Volume 9.1 fl (7.4-10.4); Monocytes Absolute Auto 0.9 K/mm3 (0.1-0.6); Monocytes Percent Auto 7.3 % (2.6-8.5); Neutrophils Absolute Auto 8.5 K/mm3 (1.3-6.7); Neutrophils Percent Auto 72.2 % (45.5-73.1); Platelet Count Result 281 k/mm3 (150-375); Red Blood Count 4.15 M/mm3 (4.6-6.20); Red Cell Distribution Width 13.1 % (11.5-14.5); White Blood Count 11.8 K/mm3 (4.5-10.0)
[2023-08-03 05:40] LABS: Anisocytosis 1+ (NORMAL); Platelet Estimate Adequate (Adequate)
[2023-08-03 05:41] LABS: Schistocytes None Seen (NORMAL)
[2023-08-03 05:42] LABS: Alanine Aminotransferase 8 U/L (6-50); Albumin Level 2.4 g/dL (3.5-5.1); Alkaline Phosphatase 63 U/L (38-126); Anion Gap 4 mmol/L (8-16); Aspartate Amino Transferase 17 U/L (17-59); Bilirubin,Total 0.5 mg/dL (0.2-1.3); Blood Urea Nitrogen 23 mg/dL (9-20); Calcium 9.1 mg/dL (8.4-10.2); Carbon Dioxide 20 mmol/L (22-30); Chloride 116 mmol/L (98-107); Estimated CRCL calculation 48 ml/min; Estimated Glomerular Filt Rate 58; Glucose 95 mg/dL (65-110); Lactic Acid Reflex 1.3 mmol/L (0.7-2.0); Potassium 3.9 mmol/L (3.4-5.0); Sodium 140 mmol/L (137-145)
[2023-08-03 06:00] VITALS: BP 142/54; PULSE 79; RESP 18; TEMP 36.4; O2SAT 98
[2023-08-03 09:08] VITALS: PULSE 77; RESP 18; O2SAT 97
[2023-08-03] MEDS: FLUTICASONE/UMECLIDIN/VILANTER 100-62.5-25 MCG ELLIPTA 1 PUFF INHALATION (09:08)
--- NOTE | 2023-08-03 09:12 | PCPTNOTE ---
Attempted PT evaluation, pt eating. Pt's RN aware of bedrest orders needing to be removed prior to PT evaluation. Will follow.
[2023-08-03] MEDS: ASPIRIN 81 MG ENTERIC TABLET PO (10:19)
[2023-08-03] MEDS: CITALOPRAM HYDROBROMIDE 10 MG TABLET PO (10:19)
[2023-08-03] MEDS: BETAMETHASONE/CLOTRIMAZOLE CR 15 GM TUBE 1 APPLIC TOPICAL ×2 (10:19→22:23)
[2023-08-03] MEDS: COLLAGENASE OINT 30 GM TUBE 1 APPLIC TOPICAL (10:19)
[2023-08-03] MEDS: ENOXAPARIN 40 MG/0.4 ML SYRINGE SUB-Q (10:20)
[2023-08-03] MEDS: GABAPENTIN 100 MG CAPSULE PO ×2 (10:20→22:22)
[2023-08-03] MEDS: droNABinol (*CRX) 2.5 MG CAPSULE PO ×2 (10:20→17:36)
[2023-08-03] MEDS: DICLOFENAC SODIUM 1% 100 GM GEL (*BKC) 1 APPLIC TOPICAL ×4 (10:20→22:23)
[2023-08-03] MEDS: FLUTICASONE PROPIONATE 0.05% NA SPR 16 GM BTL (*BKC) 2 SPRAY NASAL (10:20)
[2023-08-03 10:21] VITALS: PULSE 85
[2023-08-03] MEDS: ROFLUMILAST 500 MCG TABLET PO (10:21)
[2023-08-03] MEDS: PRAVASTATIN SODIUM 20 MG TABLET 40 MG PO (10:21)
[2023-08-03] MEDS: PANTOPRAZOLE SOD SESQUIHYDRATE 20 MG TAB PO ×2 (10:21→22:23)
[2023-08-03] MEDS: MAGNESIUM OXIDE 400 MG TABLET PO (10:21)
[2023-08-03] MEDS: METOPROLOL SUCCINATE EXT REL 50 MG TABCR PO (10:21)
--- NOTE | 2023-08-03 11:34 | PCPTNOTE ---
Spoke with Jyotsna JORDAN. Per Jyotsna, bedrest orders can be removed so pt can participate in skilled therapy. RN aware. Attempted PT evaluation, pt refused stating no, leave me be! RN aware.
--- NOTE | 2023-08-03 13:05 | PCNFU ---
Nutrition Follow-Up Complete: Increased protein needs as related to pressure ulcers as evidenced by Deep tissue to right heel and unstageable pressure ulcer to saccum. Goal: Adequate Intake of at least 75% of meals/supplements Patient is not progressing towards goal. We will continue current goal. Pt current nutrition is Full liquids with Ensure compact. Last recorded weight is 87.4 kg, no new weight to report. Bowel Motility:+Bm reported 08/03. Labs Reviewed:BUN 23, GFR 58, Alb 2.4,Hgb 12.3 Meds Noted:Zosyn, Mag ox Skin:Lovenox, Protonix Additional Notes: Patient current with a full liquid diet with Ensure compact BID. Intake 10-50% of meals reported. Discussions with family regarding NGT feedings as well as hospice. If planning for NGT feedings recommend: Jevity 1.5 at 20 ml/hr advance by 10 ml q 4 hours to goal rate of 60 ml/hr. Tube feedings at goal rate providing 1980 kcals/84 gms protein/1003 ml water. Flush 100 ml flush after feedings. I would also recommend Protein Modular of Mushtaq BID for wound healing. Will monitor weight, labs, skin, oral intake, diet orders every Thursday and Thursday.
[2023-08-03] MEDS: SODIUM CHLORIDE 0.9% IV 1,000 ML 75 ML IV CONT (13:17)
--- NOTE | 2023-08-03 13:37 | PCOTNOTE ---
Patient refused treatment this session. Patient was initially agreeable to participate in activities sitting at the edge of the bed. Patients nephew was present. When initiating care patient then declined and stated he did not want to get up and didn't understand why he needed to do this. Patient was educated on the importance of participating in therapy services. Patient continued to decline stating he was having to much pain. Nursing is aware of pain.
[2023-08-03 15:05] LABS: Kappa Lambda Free Ratio RU 9.61 (<=8.69); Kappa Light Chains, Free RU 119.02 mg/L (<=32.90); Lambda Free Light Chains RU 12.39 mg/L (<=3.79)
[2023-08-03 15:46] LABS: Albumin 2.8 g/dL (3.8-4.8); Alpha 1 Globulin 0.5 g/dL (0.2-0.3); Beta 1 Globulin 0.3 g/dL (0.4-0.6); Gamma Globulin 0.9 g/dL (0.8-1.7); Protein, Total 5.8 g/dL (6.1-8.1)
[2023-08-03 16:19] VITALS: BP 128/72; PULSE 73; RESP 18; TEMP 36.1; O2SAT 100
--- NOTE | 2023-08-03 20:14 | PM.IMPN ---
Progress Note: A&P Assessment and Plan (1) Adult failure to thrive: Code(s): R62.7 - Adult failure to thrive Status: Acute (2) Generalized weakness: Code(s): R53.1 - Weakness Status: Acute (3) Sacral decubitus ulcer: Qualifiers: Pressure injury stage: unstageable Qualified Code(s): L89.150 - Pressure ulcer of sacral region, unstageable Code(s): L89.159 - Pressure ulcer of sacral region, unspecified stage Status: Chronic (4) Lytic bone lesions on xray: Code(s): M89.9 - Disorder of bone, unspecified Status: Acute (5) PAULINE (acute kidney injury): Code(s): N17.9 - Acute kidney failure, unspecified Status: Acute (6) Renal mass, right: Code(s): N28.89 - Other specified disorders of kidney and ureter Status: Acute Plan (1) Adult failure to thrive: ?Code(s): R62.7 - Adult failure to thrive ?Status:?Acute ?Assessment and Plan: continues to have poor appetite discussed with Aditya piedra, who agrees with tube feeds to supplement oral intake Dietitian not available this and thus tube feeds unable to be started until thursday Dronabinol Aditya Piedra, who is DPOA will be here Thursday to discuss goals of care 08/03: apparently pt wants hospice. now hospice has been set up with [facility]. Will discuss with CM. (2) Generalized weakness: ?Code(s): R53.1 - Weakness ?Status:?Acute ?Assessment and Plan: Likely secondary to recent hospitalization PT OT consult (3) Sacral decubitus ulcer: ?Qualifiers: ?Pressure injury stage:?unstageable? Qualified Code(s):?L89.150 - Pressure ulcer of sacral region, unstageable ?Code(s): L89.159 - Pressure ulcer of sacral region, unspecified stage ?Status:?Chronic ?Assessment and Plan: for wound debridement continue Zosyn day12/09, leukocytosis improving Surgery following, wound care per surgery 08/03: appreciate general surgery consultation from general surgery- Infected and necrotic tissue successfully debrided 07/31/2023.? Will restart Santyl dressing changes.? f/u with wound care nurses (4) Lytic bone lesions on xray: ?Code(s): M89.9 - Disorder of bone, unspecified ?Status:?Acute ?Assessment and Plan: Unclear etiology Request medical records from outside hospital (5) PAULINE (acute kidney injury): ?Code(s): N17.9 - Acute kidney failure, unspecified ?Status:?Acute ?Assessment and Plan: resolved Likely pre renal azotemia Will hold hydrochlorothiazide Will hold lisinopril gentle rehydration and monitor (6) Renal mass, right: ?Code(s): N28.89 - Other specified disorders of kidney and ureter ?Status:?Acute ?Assessment and Plan: urology evaluated and reviewed prior records and noted that patient has simple bilateral cysts no intervention needed at this time Plan DVT prophylaxis on Sq Lovenox Time Spent With Patient Time: 30 min Subjective Date/time seen: 08/03/23 20:14 Interval history: complaining of pain in both feet in addition to post surgical pain Review of Systems Review of Systems: none. Exam Narrative: Narrative:?? Patient is laying in bed ? Const:?? General: comfortab le, no acute distr ess, well develope d, alert, awake, l ethargic, patient obtunded and avera ge body habitus? N utritional Appeara nce: average body habitus? Orientati on/consciousness: oriented to person , oriented to plac e, patient obtunde d and lethargic HENMT:?? Head: normal to in spection, normocep halic and atraumat i
[2023-08-03 22:00] VITALS: BP 140/77; PULSE 75; RESP 21; TEMP 36.7; O2SAT 100
[2023-08-03] MEDS: traZODone HCL 50 MG TABLET PO (22:22)
[2023-08-03] MEDS: DOCUSATE SODIUM 100 MG CAPSULE PO (22:22)
[2023-08-03] MEDS: MELATONIN 3 MG TABLET PO (22:23)
[2023-08-04] MEDS: HYDROcodone/acetaminophen (*CRX) 5-325 MG TABLET 1 TAB PO ×2 (03:56→16:54)
[2023-08-04] MEDS: SODIUM CHLORIDE 0.9% IV 1,000 ML 75 ML IV CONT (03:56)
[2023-08-04] MEDS: PIPERACILLN/TAZ 3.375GM/NS50ML 3.375 GM/50 ML BAG IVPB ×2 (05:57)
[2023-08-04 06:00] VITALS: BP 140/70; PULSE 68; RESP 21; TEMP 36.4; O2SAT 100
[2023-08-04 06:50] VITALS: PULSE 62; RESP 16; O2SAT 96
[2023-08-04] MEDS: FLUTICASONE/UMECLIDIN/VILANTER 100-62.5-25 MCG ELLIPTA 1 PUFF INHALATION (06:51)
--- NOTE | 2023-08-04 09:38 | PCNFU ---
Nutrition Follow-Up Complete: Increased protein needs as related to pressure ulcers as evidenced by Deep tissue to right heel and unstageable pressue ulcer to saccrum. Goal: Adequate Intake of at least 75% of meals/supplements Patient is not meeting goal. We will continue current goal. Pt current nutrition is heart healthy with Ensure compact BID. Last recorded weight is 87.4 kg. Bowel Motility:+Bm reported 08/03 Labs Reviewed:BUN 23, GFR 58, Alb 2.4 Meds Noted:Colace, Celexa, Zosyn, Lovenox,Protonix. Skin: Deep Tissue-right heel, unstageable pressure ulcer-sacrum. Additional Notes: Patient tolerated about 50% of heart healthy diet. Diet supplements of Ensure compact are providing an additional 220 kcals and 9 gms protein. Plans for hospice. No tube feedings will be initiated. Agree with diet orders. Will monitor weight, labs, skin, oral intake every 5 days.
[2023-08-04 10:04] VITALS: PULSE 66
[2023-08-04] MEDS: METOPROLOL SUCCINATE EXT REL 50 MG TABCR PO (10:04)
[2023-08-04] MEDS: ASPIRIN 81 MG ENTERIC TABLET PO (10:04)
[2023-08-04] MEDS: PANTOPRAZOLE SOD SESQUIHYDRATE 20 MG TAB PO (10:04)
[2023-08-04] MEDS: GABAPENTIN 100 MG CAPSULE PO (10:05)
[2023-08-04] MEDS: MAGNESIUM OXIDE 400 MG TABLET PO (10:05)
[2023-08-04] MEDS: ROFLUMILAST 500 MCG TABLET PO (10:06)
[2023-08-04] MEDS: PRAVASTATIN SODIUM 20 MG TABLET 40 MG PO (10:06)
[2023-08-04] MEDS: CITALOPRAM HYDROBROMIDE 10 MG TABLET PO (10:06)
[2023-08-04] MEDS: ENOXAPARIN 40 MG/0.4 ML SYRINGE SUB-Q (10:06)
[2023-08-04] MEDS: droNABinol (*CRX) 2.5 MG CAPSULE PO ×2 (10:07→16:54)
--- NOTE | 2023-08-04 10:08 | PC.NURSE ---
Pt has freq loose stools. Teodora held this am
[2023-08-04] MEDS: COLLAGENASE OINT 30 GM TUBE 1 APPLIC TOPICAL (10:09)
[2023-08-04] MEDS: BETAMETHASONE/CLOTRIMAZOLE CR 15 GM TUBE 1 APPLIC TOPICAL (10:09)
--- NOTE | 2023-08-04 10:51 | PCOTNOTE ---
Per RN, Patient will be discharged from therapy services due to Patient going hospice. Will inform OTR for discharge.
--- NOTE | 2023-08-04 12:17 | PM.DS ---
DS: Admitting Diagnosis Discharge Date 08/04/2023 Admitting Diagnosis Failure to thrive DS: Discharge Diagnosis Discharge Diagnosis (1) Sacral decubitus ulcer: Qualifiers: Pressure injury stage: unstageable Qualified Code(s): L89.150 - Pressure ulcer of sacral region, unstageable Code(s): L89.159 - Pressure ulcer of sacral region, unspecified stage Status: Chronic Plan (1) Adult failure to thrive: ?Code(s): R62.7 - Adult failure to thrive ?Status:?Acute (2) Generalized weakness: ?Code(s): R53.1 - Weakness ?Status:?Acute (3) Sacral decubitus ulcer: ?Qualifiers: ?Pressure injury stage:?unstageable? Qualified Code(s):?L89.150 - Pressure ulcer of sacral region, unstageable ?Code(s): L89.159 - Pressure ulcer of sacral region, unspecified stage ?Status:?Chronic (4) Lytic bone lesions on xray: ?Code(s): M89.9 - Disorder of bone, unspecified ?Status:?Acute (5) PAULINE (acute kidney injury): ?Code(s): N17.9 - Acute kidney failure, unspecified ?Status:?Acute (6) Renal mass, right: ?Code(s): N28.89 - Other specified disorders of kidney and ureter ?Status:?Acute Plan (1) Adult failure to thrive: ?Code(s): R62.7 - Adult failure to thrive ?Status:?Acute ?Assessment and Plan: continues to have poor appetite discussed with Aditya piedra, who agrees with tube feeds to supplement oral intake Dietitian not available this and thus tube feeds unable to be started until thursday Dronabinol Aditya Piedra, who is DPOA will be here Thursday to discuss goals of care 08/03: apparently pt wants hospice. now hospice has been set up with [facility]. Will discuss with CM. (2) Generalized weakness: ?Code(s): R53.1 - Weakness ?Status:?Acute ?Assessment and Plan: Likely secondary to recent hospitalization PT OT consult (3) Sacral decubitus ulcer: ?Qualifiers: ?Pressure injury stage:?unstageable? Qualified Code(s):?L89.150 - Pressure ulcer of sacral region, unstageable ?Code(s): L89.159 - Pressure ulcer of sacral region, unspecified stage ?Status:?Chronic ?Assessment and Plan: for wound debridement continue Zosyn day12/09, leukocytosis improving Surgery following, wound care per surgery 08/03: appreciate general surgery consultation from general surgery- Infected and necrotic tissue successfully debrided 07/31/2023.? Will restart Santyl dressing changes.? f/u with wound care nurses 07/05: Will complete pt's post op course with Augmentin 875 bid for 4 more days. (4) Lytic bone lesions on xray: ?Code(s): M89.9 - Disorder of bone, unspecified ?Status:?Acute ?Assessment and Plan: Unclear etiology Request medical records from outside hospital (5) PAULINE (acute kidney injury): ?Code(s): N17.9 - Acute kidney failure, unspecified ?Status:?Acute ?Assessment and Plan: resolved Likely pre renal azotemia Will hold hydrochlorothiazide Will hold lisinopril gentle rehydration and monitor (6) Renal mass, right: ?Code(s): N28.89 - Other specified disorders of kidney and ureter ?Status:?Acute ?Assessment and Plan: urology evaluated and reviewed prior records and noted that patient has simple bilateral cysts no intervention needed at this time 7. Disposition 08/04/23 Spent about 30 minutes talking to his nephew Aditya. Aditya is going to set up hospice with [facility] the patient's primary assisted living facility. He agrees that the patient has a significant failure to thrive and in order to prevent recurrent hospitalizations, will try and put the patient on hospice. The patient is still taking p.o. and a decision on whether or not he will need long-term tube feeds can be taken in the future. He is already on p.r.n. pain medications. The patient complains that he is in chronic pain all the time. Yesterday he was commenting about both of his feet and he was having pain in
[2023-08-04 12:18] LABS: Basophils Absolute Auto 0.1 K/mm3 (0.0-0.1); Basophils Percent Auto 0.5 % (0.2-1.2); Eosinophils Absolute Auto 0.4 K/mm3 (0-0.3); Eosinophils Percent Auto 2.9 % (0-4.4); Hematocrit 37.5 % (42.0-52.0); Hemoglobin 11.8 g/dL (14.0-18.0); Immature Granulocyte Absolute 0.07 K/mm3 (0.00-0.031); Immature Granulocyte Percent A 0.5 % (0-0.5); Lymphocytes Absolute Auto 1.38 K/mm3 (0.9-3.2); Lymphocytes Percent Auto 10.4 % (18.3-44.2); Mean Corpuscular HGB Conc 31.5 g/dl (32-36); Mean Corpuscular Hemoglobin 29.3 pg (26-34); Mean Corpuscular Volume 93.1 fl (80-100); Mean Platelet Volume 9.2 fl (7.4-10.4); Monocytes Absolute Auto 0.7 K/mm3 (0.1-0.6); Monocytes Percent Auto 5.3 % (2.6-8.5); Neutrophils Absolute Auto 10.7 K/mm3 (1.3-6.7); Neutrophils Percent Auto 80.4 % (45.5-73.1); Platelet Count Result 327 k/mm3 (150-375); Red Blood Count 4.03 M/mm3 (4.6-6.20); Red Cell Distribution Width 13.2 % (11.5-14.5); White Blood Count 13.3 K/mm3 (4.5-10.0)
[2023-08-04 12:20] LABS: Anion Gap 2 mmol/L (8-16); Blood Urea Nitrogen 17 mg/dL (9-20); Calcium 8.9 mg/dL (8.4-10.2); Carbon Dioxide 24 mmol/L (22-30); Chloride 114 mmol/L (98-107); Estimated CRCL calculation 57 ml/min; Estimated Glomerular Filt Rate > 60; Glucose 105 mg/dL (65-110); Potassium 3.4 mmol/L (3.4-5.0); Sodium 140 mmol/L (137-145)
[2023-08-04 14:00] VITALS: BP 146/62; PULSE 70; RESP 18; TEMP 36.8; O2SAT 96
[2023-08-04 16:16] LABS: SARS-CoV-2 RNA PCR Negative (Negative)
[2023-08-05 13:01] LABS: Immunoglobulin A 302 mg/dL (70-320); Immunoglobulin G 797 mg/dL (600-1540); Immunoglobulin M 240 mg/dL (50-300)
[2023-08-06 02:48] LABS: Creatinine, Random Urine 93 mg/dL (20-320); Total Protein/Creatinine Ratio 194 mg/g creat (25-148)
== END 2023-08-04 17:50 | disposition hospice, home (50) | DRG 581 ==
LOC: ANHED 15:23 → ANH3MED 20:05
PROVIDERS: Internal Medicine; Surgery; Admitting Provider General Practice; Emergency Provider Emergency Medicine; PCP Internal Medicine; Visit Provider Internal Medicine
PROC: 0QB10ZZ Excision of Sacrum, Open Approach (ICD-10-PCS; principal; 2023-07-31 10:00)
DX: L89.150 Pressure ulcer of sacral region, unstageable (principal); M89.9 Disorder of bone, unspecified; R79.89 Other specified abnormal findings of blood chemistry; R62.7 Adult failure to thrive; J44.9 Chronic obstructive pulmonary disease, unspecified; N28.1 Cyst of kidney, acquired; E78.5 Hyperlipidemia, unspecified; I10 Essential (primary) hypertension; Z20.822 Contact with and (suspected) exposure to COVID-19; Z87.891 Personal history of nicotine dependence
CPT/HCPCS: 36415; 70450; 72193; 80048; 80053; 81003; 82570; 82784; 82948; 83605; 83735; 83883; 84155; 84156; 84165; 84166; 85025; 85027; 85610; 85730; 86850; 86900; 86901; 87040; 87635; 87637; 94640; 96374; 97166; 99285; A9270; G0378; J0330; J0690; J1100; J1650; J2405; J2543; J2704; J3010; J7030; J7120; Q9967